=== PATIENT | female | born 1955 | race African-American/Black ===

== ENCOUNTER 2021-11-29 12:57 | Emergency (ER) | payer MEDICAID ==
[~2021-11-29] VITALS: Ht 170.2 cm; Wt 91.0 kg
[2021-11-29 13:08] VITALS: BP 154/79
== END 2021-11-29 17:46 | disposition left against medical advice (07) ==
LOC: ER 12:57
DX: Z53.21 Procedure and treatment not carried out due to patient leaving prior to being seen by health care provider (principal)
CPT/HCPCS: 93005

== ENCOUNTER 2021-12-21 06:56 | Emergency (ER) | payer MEDICAID ==
[~2021-12-21] VITALS: Ht 170.2 cm; Wt 94.7 kg
[2021-12-21 07:10] VITALS: BP 119/69
[2021-12-21] MEDS ORDERED: TETRACAINE 0.5% OPHTH DROPS 4ML RIGHTEYE ONE (07:45)
[2021-12-21] MEDS ORDERED: FLUORESCEIN SODIUM 1MG/STRIP RIGHTEYE ONE (07:45)
== END 2021-12-21 09:05 | disposition home or self-care (01) ==
LOC: ER 06:56
DX: R51.9 Headache, unspecified (principal); E11.9 Type 2 diabetes mellitus without complications; E78.00 Pure hypercholesterolemia, unspecified; I25.2 Old myocardial infarction; I10 Essential (primary) hypertension; Z98.890 Other specified postprocedural states
CPT/HCPCS: 99284

== ENCOUNTER 2022-04-04 04:23 | Emergency (ER) | payer MEDICAID ==
[~2022-04-04] VITALS: Ht 170.2 cm; Wt 90.0 kg
[2022-04-04 04:25] VITALS: BP 106/75
[2022-04-04 05:25] LABS: BASOPHILS % 0.8 % (0.0-2.0); EOSINOPHILS % 2.8 % (0.0-5.0); HEMATOCRIT. 36.9 % (36.0-48.0); HEMOGLOBIN. 11.9 g/dL (12.0-16.0); MEAN CORPUSCULAR HEMOGLOBIN 29.1 pg (28.0-32.0); MEAN CORPUSCULAR VOLUME 90.1 fL (81.0-99.0); MEAN PLATELET VOLUME 7.5 fl (7.4-10.4); MONOCYTES % 9.2 % (2.0-8.0); NEUTROPHILS % 49.2 % (40.0-76.0); PLATELET 285 x1000/uL (130-400); RED CELL DISTRIBUTION WIDTH 15.4 % (11.6-14.6)
[2022-04-04 05:34] LABS: CHLORIDE 114 mEq/L (98-107)
[2022-04-04 05:35] LABS: PROTHROMBIN TIME 11.1 sec (9.6-11.0)
[2022-04-04] MEDS ORDERED: KETOROLAC 30MG/ML VIAL IV ONE (05:45)
[2022-04-04] MEDS ORDERED: METOCLOPRAMIDE HCL 10MG/2ML VIAL IV ONE (05:45)
== END 2022-04-04 15:17 | disposition left against medical advice (07) ==
LOC: ER 04:31
DX: R51.9 Headache, unspecified (principal); E11.9 Type 2 diabetes mellitus without complications; I10 Essential (primary) hypertension; Z86.73 Personal history of transient ischemic attack (TIA), and cerebral infarction without residual deficits; Z95.1 Presence of aortocoronary bypass graft
CPT/HCPCS: 36415; 80053; 85025; 93005; 99284